=== PATIENT | male | born 1970 | race Two or more races ===

== ENCOUNTER 2025-04-23 04:24 | Inpatient (IN) | payer MEDICAID, OTHER ==
[~2025-04-23] VITALS: Ht 182.9 cm; Wt 96.9 kg
[2025-04-23] VITALS (19 sets, daily range): BP systolic 112–148; BP diastolic 74–96; PULSE 80–94; RESP 13–22; TEMP 97.8–98.2; O2SAT 0–98
--- NOTE | 2025-04-23 04:43 | ED.PDOC ---
HPI Comments HPI: 54 year old male presents to the ED with a chief complaint of chest pain onset yesterday around 16:00. Patient [place] when he began experiencing chest pain, was seen at [facility], was diagnosed with pericardial effusion, pulmonary hypertension, was discharged and advised to follow up with PCP, go to nearest ED if chest pain does not resolve. Patient states chest pain has not improved, describes pain as a pressure sensation. Denies shortness of breath, dizziness, headache, numbness/tingling, fever, chills, nausea, vomiting, diarrhea, abdominal pain, blurred vision. No other symptoms or modifying factors present at this time. Initial Vitals BP: 117/72 HR: 86 RR: 18 O2: 96% Temp: 97.6 F Past Medical History: Denies Past Surgical History: Denies Social History: Denies ETOH, smoking, and drug use. Medications: Denies Allergies: CHESTER FRAZIER/AMILCAR MOISE. HPI: Poor Historian. REVIEW OF SYSTEMS: CONSTITUTIONAL: Denies acute: fever, diaphoresis, chills, generalized weakness. HEAD: Denies acute: headache, photophobia Eyes: Denies acute: Double vision, vision loss, eye pain, eye discharge. EARS: Denies acute: tinnitus, hearing loss, ear discharge, ear pain, THROAT: Denies acute: sore throat, swelling, difficulty swallowing , pain with swallowing, change in voice. NECK: Denies acute: neck pain, neck swelling, stiff neck. HEART: Denies acute : palpitations, LUNGS: Denies acute: SOB, wheezing, cough, hemoptysis ABDOMEN: Denies acute: abdominal pain, Nausea, Vomiting, diarrhea, melena , hematemesis, hematochezia SKIN: Denies acute: rash, redness, lesions, itchiness. EXTREMITIES: Denies acute: calf pain, numbness, tingling, weakness, denies pain in extremity. Denies acute: Low back pain. Neuro: Denies acute: focal neurological deficit, motor or sensory focal neurological deficit, tremors, seizure like activity, confusion, dizziness, change in mental status, loss of bowel or bladder function, cauda equina like symptoms. : Denies acute: dysuria, hematuria, flank pain, increase in urinary frequency. PSYCH: Denies acute: hallucination, suicidal ideation, homicidal ideation. PHYSICAL EXAM: General: -----moderate---acute distress, awake and alert. Head: normocephalic, atraumatic. Neck: supple, trachea is midline, no swelling. Throat: Normal phonation. Eyes:, no erythema, no purulent discharge, no proptosis, no icterus. Heart: regular rate, regular rhythm, no significant murmur appreciated. Lungs: no apparent respiratory distress, Able to speak in full sentences. No wheezing, no rhonchi, no crackles. No stridors Clear to auscultation bilaterally. Abdomen: non tender to palpation, non distended, soft, no guarding, no rebound, + bowel sounds. Neuro: Awake, Alert, oriented to name, self, situation, follows commands GCS=15. Speech is normal. Skin: no petechia, no purpura, no cyanosis, non-pale, not jaundice. Lower extremities: --no - Pitting edema no deformity, no focal swelling, no calf TTP. Makes eye contact. moves all four extremities. Face: no apparent facial droop. Ambulating in the ED independently. ED COURSE: DISCLAIMER: This medical document was created using an electronic medical record system with voice recognition software and computerized dictation system. Although this document has been carefully reviewed, there might still be some phonetic and typographical errors. Occasional wrong-word or "sound-alike" substitutions may have occurred due to the inherent limitations of voice recognition software. These areas are purely typographical due to imperfections of the software programs and do not reflect any compromise in the patient's medical care. Please read the chart carefully and recognize, using context, where these substitutions have occurred. Chief Complaint: Chest Pain Time Seen by MD: 04:35 Reviewed Notes: Medications, Allergies Allergies: Coded Allergies: NO KNOWN ALLERGIES (Unverified , 04/23/25) Information Source: Patient Mode of Arrival: Ambulatory Severity: Moderate Timing: Days Duration: Since onset Prehospital treatment: None Past Medical History PAST MEDICAL HISTORY: Denies Surgical History: Denies all surgeries Family History Family History: Reviewed,noncontributory to illness, No family hx of Cancer, No family hx of DM, No family hx of Heart reza, No family hx of HTN, No family hx ofKidney reza, No family hx of Liver reza, No family hx of Lung reza, No family hx of Stroke Social History Smoker: Non-Smoker Alcohol: Denies ETOH Use Drugs: Denies Drug Use Lives In: Home Was a procedure done? Was a procedure done?: No X-Ray, Labs, Meds, VS Vital Signs Date Time Temp Pulse Resp B/P (MAP) Pulse Ox O2 Delivery O2 Flow Rate FiO2 04/23/25 04:58 102 04/23/25 04:45 98.7 94 15 136/85 (102) 96 98.7 04/23/25 04:33 97.6 86 18 117/72 96 97.6 04/23/25 04:30 81 Lab Test 04/23/25 04:50 Range/Units White Blood Count Pending Red Blood Count Pending Hemoglobin Pending Hematocrit Pending Mean Corpuscular Volume Pending Mean Corpuscular Hemoglobin Pending Mean Corpuscular Hemoglobin Concent Pending Red Cell Distribution Width Pending Platelet Count Pending Mean Platelet Volume Pending Neutrophils (%) (Auto) Pending Lymphocytes (%) (Auto) Pending Monocytes (%) (Auto) Pending Basophils (%) (Auto) Pending Neutrophils # (Auto) Pending Lymphocytes # (Auto) Pending Monocytes # (Auto) Pending Prothrombin Time Pending Prothrombin Time INR Pending Activated Partial Thromboplast Time Pending Sodium Level Pending Potassium Level Pending Chloride Level Pending Carbon Dioxide Level Pending Anion Gap Pending Blood Urea Nitrogen Pending Creatinine Pending Glomerular Filtration Rate Calc Pending BUN/Creatinine Ratio Pending Serum Glucose Pending Lactic Acid Level Pending Calcium Level Pending Magnesium Level Pending Total Bilirubin Pending Aspartate Amino Transferase (AST) Pending Alanine Aminotransferase (ALT) Pending Alkaline Phosphatase Pending Troponin I High Sensitivity Pending Total Protein Pending Albumin Pending Triglycerides Level Pending Cholesterol Level Pending LDL Cholesterol Pending HDL Cholesterol Pending Current Medications Medications (Trade) Dose Ordered Sig/Jam Route Start Time Stop Time Status Last Admin Heparin Sodium (Porcine) 5,000 units ONCE ONCE IV 04/23/25 04:45 04/23/25 04:46 DC 04/23/25 04:[address] [address] Ph: [phone] DIAGNOSTIC IMAGING Diagnostic Imaging Report : [id number] Signed PATIENT: AMILCAR FRAZIER ACCT: [id number] UNIT: [id number] : 1970 LOC: OVERFLOW ROOM / BED: [address] [place] [address] / A AGE / SEX: 54 / M ADM STATUS: ADM IN SERVICE 0438 ORDERING PHYSICIAN: MEL LICONA DO PROCEDURE(s): CXRP - CHEST PORTABLE REASON: cp ORDER NUMBER(s): [id number], ACCESSION NUMBER(s): [id number] CHEST RADIOGRAPH Indication: cp Technique: 1 view Comparison: None FINDINGS: Lines and Tubes: External leads and overlying defibrillator pad. Lungs/Pleura: Diffuse increased interstitial markings. No focal consolidation or evident pleural abnormality. Cardiomediastinum: Heart size appears mildly enlarged for technique. Other: No acute osseous abnormality. IMPRESSION: 1. Heart failure pattern with bilateral interstitial opacities. No focal consolidation or evident pleural abnormality. ATED BY: LEEANNA CRAMER MD DICTATED DATE/TIME: 04/23/25515 SIGNED BY: LEEANNA CRAMER MD SIGNED DATE/TIME: 04/23/25515 CC: Time of 1ST Reevaluation: 05:05 Reevaluation 1ST: Unchanged Time of 2ND Reevaluation: 04:40 (spoke with cardiolgy Dr. Ordoñez, recommends code STEMI, heprin bolus only ) Patient Education/Counseling: Diagnosis, Treatment Family Education/Counseling: No Family Present Departure 1 Departure Impression: Primary Impression: STEMI (ST elevation myocardial infarction) Critical Care Note Critical Care Time?: Yes (35 min-critical care time only) I personally scribed for MEL LICONA DO ([email or web address]) on 04/23/25 at 04:43. Electronically submitted by Kaylee Singh ([email or web address]). I personally scribed for MEL LICONA DO ([email or web address]) on 04/23/25 at 04:44. Electronically submitted by Kaylee Singh ([email or web address]). I personally scribed for MEL LICONA DO ([email or web address]) on 04/23/25 at 04:57. Electronically submitted by Kaylee Singh ([email or web address]). I personally scribed for [facility]EL [facility]ONA DO ([facility] on 04/23/25 at 04:58. Electronically submitted by Kaylee Singh ([email or web address]). I personally scribed for MEL LICONA DO ([facility]) on 04/23/25 at 05:07. Electronically submitted by Kaylee Singh ([email or web address]). I personally scribed for MEL LICONA DO ([facility]) on 04/23/25 at 05:29. Electronically submitted by Kaylee Singh ([email or web address]). MEL LICONA DO Apr 23, 2025 04:43
[2025-04-23] MEDS: HEPARIN SODIUM (PORCINE) 5000 UNITS/ML 1ML VIAL IV ONE (04:45)
[2025-04-23] MEDS ORDERED: NITROGLYCERIN 0.4 MG SL TAB SL PRN (05:00)
[2025-04-23] MEDS: ATORVASTATIN 20 MG TAB PO ONE (05:00)
[2025-04-23] MEDS ORDERED: ONDANSETRON HCL 4 MG/2 ML VIAL IV PRN (05:00)
[2025-04-23] MEDS ORDERED: MORPHINE SULFATE INJ 2 MG/ml SYRG IV PRN ×2 (05:00)
[2025-04-23] MEDS ORDERED: ACETAMINOPHEN 325 MG TAB PO PRN (05:00)
[2025-04-23] MEDS: SODIUM CHLOR 0.9% PF (SALINE LOCK) 10ML VIAL/SYR IV SCH (05:03)
--- NOTE | 2025-04-23 05:15 | DVHHPRES ---
History of Present Illness Resident Creating Document: MADINA GRANT History of Present Illness Gibson Juarez is a 54-year-old male patient who presents to ED with chief complaint of retrosternal, nonradiating, oppressive chest pain which started on 04/22/2025 at 4:00 p.m. in Functional Class III (while eating) and continued for the rest of the day, initially was intensity 10/10. Patient went to other center ([facility]) where he was diagnosed with [id number] pericardial effusion in [place] [facility] (ruled out pulmonary embolism), and was discharged home recommended to revisit emergency department if pain persisted. Since pain persisted until 4:20 a.m., he decided to visit the ED once again via EMS were and EKG was completed and showed inferolateral STEMI, indicating load of aspirin and activating code STEMI. Past medical history: Denies Surgical history: Denies Family history: Father has history of heart disease (pacemaker placement) Social history: Lives in [place] with family ( is next of kin). Denies current tobacco, alcohol and other drug abuse Allergies: Denies Home medication: Denies Patient seen and examined at bedside. Currently pain is 5/10. Indicated IV bolus of heparin, prepared the patient for lab support service tech. Patient will be admitted to ICU for further management. Past Medical History Per HPI Past Surgical History Per HPI Family History Per HPI Past Social History Per HPI Review of Systems Review of Systems Per HPI Allergies: Coded Allergies: NO KNOWN ALLERGIES (Unverified , 04/23/25) Medications Current Medications Medications Dose Ordered Sig/Jam Route Start Time Stop Time Status Last Admin Dose Admin Sodium Chloride 10 ml Q8HR IV 04/23/25 06:00 04/23/25 05:03 10 ML Aspirin 81 mg DAILY PO 04/24/25 10:00 Exam Vital Signs Vital Signs Date Time Temp Pulse Resp B/P (MAP) Pulse Ox O2 Delivery O2 Flow Rate FiO2 04/23/25 04:58 102 04/23/25 04:33 97.6 18 117/72 96 97.6 Exam Patient lying in bed, in no acute distress General: Lucid, afebrile, mucosae are moist Cardiovascular: Normal S1 and S2. No murmurs, gallops or rubs Respiratory: Normal ventilation mechanics. Clear lung sounds on auscultation Abdomen: Soft, nontender, no organomegaly, normal bowel sounds MSK/skin: Mobilizes 4 limbs. Skin is dry and warm Neurological: Oriented in 3 spheres. No motor no sensitive deficits. Pupils are isocoric and reactive SEPSIS Sepsis Screen Date sepsis recognized/suspect: Apr 23, 2025 Time Sepsis recognized/suspect: 435 Recent Procedure: No On Antibiotic Therapy: No Respiratory Rate >20: No Heart Rate >90: No Temp<36 C (96.8 F) or >38.3 C: No SBP <90 or MAP <65 mmHG: No New Acute Mental Status Change: No Is the patient on CPAP, BIPAP,: No Physician Orders Getter Filler (04/23/25 ) Lactic Acid W/ Reflex Order (04/23/25 04:38) Chest Portable (04/23/25 04:38) Electrocardigram (04/23/25 04:38) Electrocardigram (04/23/25 05:38) Electrocardigram (04/23/25 07:38) Complete Blood Count (04/23/25 04:49) Comprehensive Metabolic Panel (04/23/25 04:49) PTPTT (04/23/25 04:49) Magnesium (04/23/25 04:49) Chest Portable (04/23/25 04:49) Getter Filler (04/23/25 04:49) Blood Pressure (04/23/25 04:49) Pulse Oximetry (04/23/25 04:49) Sodium Chloride Lock (Saline Lock Ns) (04/23/25 06:00) Aspirin Tablet (04/24/25 10:00) Oxygen Per Hour (04/23/25 04:49) Lipid Panel (04/23/25 04:49) Troponin-I Hs (04/23/25 04:49) Cardiac Rehabilitation - Outpa (04/23/25 04:49) Comprehensive Metabolic Panel (04/25/25 04:00) Troponin-I Hs (04/23/25 05:49) Troponin-I Hs (04/23/25 07:49) * Cardiology Consult (04/23/25 04:56) Admit (04/23/25 04:59) Code Status (04/23/25 04:59) Acetaminophen Tablet (Tylenol Tablet) (04/23/25 05:00) Ondansetron Hcl (Zofran) (04/23/25 05:00) Npo (Nothing By Mouth) Diet (04/23/25 Breakfast) Echo 2d Mode Cardiac Dop (04/23/25 04:59) Morphine Sulfate Injection (04/23/25 05:00) Nitroglycerin Sublingual (Ntrostat Subli (04/23/25 05:00) Morphine Sulfate Injection (04/23/25 05:00) Oxygen By Nasal Cannula (04/23/25 04:59) Stat Ekg For Chest Pain (04/23/25 04:59) Notify Md Of Changes From Base (04/23/25 04:59) Paving Rammer For 24 Hours (04/23/25 04:59) Emergency Dysrhythmia Protocol (04/23/25 04:59) Rhythm Strips Once Every Shift (04/23/25 04:59) Atorvastatin (Lipitor) (04/23/25 22:00) Atorvastatin (Lipitor) (04/23/25 05:00) Vital Signs Date Time Temp Pulse Resp B/P (MAP) Pulse Ox O2 Delivery O2 Flow Rate FiO2 04/23/25 04:58 102 04/23/25 04:33 97.6 86 18 117/72 96 97.6 04/23/25 04:30 81 Medications Medications Dose Ordered Sig/Jam Route Start Time Stop Time Status Last Admin Dose Admin Heparin Sodium (Porcine) 5,000 units ONCE ONCE IV 04/23/25 04:45 04/23/25 04:46 DC 04/23/25 04:45 5,000 UNITS Sodium Chloride 10 ml Q8HR IV 04/23/25 06:00 04/23/25 05:03 10 ML Assessment/Plan Assessment/Plan Inferolateral STEMI (Killip and Starr A, patient delay 12 hours, door to balloon time and total ischemia time pending) [id number] pericardial effusion Ruled out pulmonary embolism Completed EKG which showed inferolateral STEMI. Ordered laboratory and troponins. Code STEMI activated, patient is going to lab support service tech. Have discussed risks and benefits of procedure, including risk of ending up with hemodialysis (patient did receive iodine this evening), bleeding, infection and even . Patient consents to procedure Ordered echocardiogram Patient admitted to ICU Patient received bolus of heparin (4000 units) and load of aspirin (325 mg) Goals of care discussed with patient for over18 minutes: Full code status Discussed plan with Dr. Daniels, patient, family and nurses: Patient admitted to hospital in ICU status, code STEMI activated, transporting patient to lab support service tech to complete primary percutaneous coronary intervention. Patient has prolonged times, has high-risk of presenting mechanical complications. Patient has poor prognosis. Plan discussed with: Patient, Spouse, Son, Other (Nurses) My Orders Orders - MADINA GRANT Procedure Category Date Status Time Admit ADMIT 04/23/25 Verified 04:59 Code Status CODE 04/23/25 Verified 04:59 Acetaminophen Tablet [facility] 04/23/25 Verified (Tylenol Tablet) 05:00 Ondansetron Hcl [facility] 04/23/25 Verified (Zofran) 05:00 Npo (Nothing By DIET 04/23/25 Verified Mouth) Diet Breakfast Echo 2d Mode Cardiac US 04/23/25 Verified DOP 04:59 Morphine Sulfate [facility] 04/23/25 Verified Injection 05:00 Nitroglycerin [facility] 04/23/25 Verified Sublingual (Ntrostat 05:00 Morphine Sulfate [facility] 04/23/25 Verified Injection 05:00 Oxygen By Nasal RT 04/23/25 Verified Cannula 04:59 Stat Ekg For Chest [facility] 04/23/25 Verified Pain 04:59 Notify Md Of Changes [facility] 04/23/25 Verified From Base 04:59 Paving Rammer For [facility] 04/23/25 Verified 24 Hours 04:59 Emergency Dysrhythmia [facility] 04/23/25 Verified Protocol 04:59 Rhythm Strips Once [facility] 04/23/25 Verified Every Shift 04:59 Atorvastatin (Lipitor) [facility] 04/23/25 Verified 22:00 Atorvastatin (Lipitor) [facility] 04/23/25 Verified 05:00 Date of Service: Apr 23, 2025 Billing Provider: GRISELDA DANIELS MD Common Visit Codes: [id number] INP/OBS CARE (HIGH) Secondary Visit Codes: [id number] CARE PLAN 30 MINUTES MADINA GRANT Apr 23, 2025 05:15
--- NOTE | 2025-04-23 05:18 | DVH ---
CHEST RADIOGRAPH Indication: cp Technique: 1 view Comparison: None FINDINGS: Lines and Tubes: External leads and overlying defibrillator pad. Lungs/Pleura: Diffuse increased interstitial markings. No focal consolidation or evident pleural abn ormality. Cardiomediastinum: Heart size appears mildly enlarged for technique. Other: No acute osseous abnormality. IMPRESSION: 1. Heart failure pattern with bilateral interstitial opacities. No focal consolidation or evident ple ural abnormality.
[2025-04-23] MEDS: ANGIOMAX 250 MG VIAL IV ONE (05:21)
[2025-04-23] MEDS: MIDAZOLAM HCL 2MG/2ML 2ml VIAL (1mg/ml) ONE (05:21)
[2025-04-23] MEDS: fentaNYL CITRATE 100 MCG/2 ML VL ONE (05:21)
[2025-04-23] MEDS: VERAPAMIL 2.5MG/ML INJ 2ML VIAL IV ONE (05:21)
[2025-04-23] MEDS: SODIUM CHL 0.9% 50 ML ONE (05:21)
[2025-04-23] MEDS: IODIXANOL 320MG/ML 100ML BTL IV ONE (05:22)
[2025-04-23] MEDS: LIDOCAINE 2%HCL (LOCAL ANESTH.) INJ 20ML MDV ONE (05:22)
[2025-04-23 05:28] LABS: Hematocrit 47.1 % (41.0-53.0); Hemoglobin 15.7 g/dL (13.5-17.5); Mean Corpuscular Hemoglobin 31.9 pg (28.0-32.0); Mean Corpuscular Volume 95.9 fL (80.0-100.0); Nucleated Red Blood Cells % 0.0 %
--- NOTE | 2025-04-23 05:33 | DVHINCON2 ---
Date Seen: Apr 23, 2025 Referring Physician Emergency room Reason for Consultation Chest pain History of Present Illness 54-year-old gentleman developed chest pain about 4:00 a.m. yesterday afternoon and went to [facility] in [place]. He was told he had a pericardial effusion and possibly pericarditis. He was sent home. He had recurrent symptoms of chest pain and shortness of breath. He came to [facility] and was found to have significant ST segment elevations in the inferior lateral leads suggesting ST-elevation myocardial infarction. [place] [address]. A code STEMI was called. Patient was brought to the cardiac catheterization laboratory. He has no significant past medical history. He had one episode of chest pain about six months ago but it resolved promptly. Past Medical History There was no history of diabetes and hypertension. Issue underlying coronary artery disease thyroid disorders bleeding disorders or endocrinopathies. Past Surgical History No past surgical history. Family History He has father had heart disease. His mother of diabetes mellitus. Siblings have been LD. He is and has children. Social History He is a nondrinker nonsmoker. 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 Current Medications Current Medications Medications (Trade) Dose Ordered Sig/Jam Route PRN Reason Start Time Stop Time Status Last Admin Sodium Chloride (Saline Lock Ns) 10 ml Q8HR IV 04/23/25 06:00 04/23/25 05:03 Aspirin 81 mg DAILY PO 04/24/25 10:00 Acetaminophen (Tylenol Tablet) 325 mg Q4HP PRN PO MILD PAIN (1-3 PAIN SCALE) 04/23/25 05:00 Ondansetron HCl (Zofran) 4 mg Q4HP PRN IV NAUSEA / VOMITING 04/23/25 05:00 Morphine Sulfate 2 mg Q4HPRN PRN IV SEVERE PAIN (7-10 PAIN SCALE) 04/23/25 05:00 Nitroglycerin (Ntrostat Sublingual) 0.4 mg Q5MINP PRN SL FOR CHEST PAIN 04/23/25 05:00 Morphine Sulfate 2 mg Q30M PRN IV FOR CHEST PAIN 04/23/25 05:00 Atorvastatin Calcium (Lipitor) 80 mg HS PO 04/23/25 22:00 Review of Systems Review of systems from a constitutional standpoint negative for fevers chills or weight loss. ENT is otherwise negative with the exception of the occasional dizziness. Neurologically stable. Cardiac and respiratory as noted above with shortness of breath and chest pain. GI negative. Hematological and oncological negative. Neurologically and musculoskeletal endocrinology negative. No history of bleeding disorders. History of prostatic urogenital abnormalities. Vital Signs Vital Signs Date Time Temp Pulse Resp B/P (MAP) Pulse Ox O2 Delivery O2 Flow Rate FiO2 04/23/25 05:12 16 96 Room Air* 0 21 04/23/25 04:58 102 04/23/25 04:45 98.7 136/85 (102) 98.7 Physical Exam He is awake alert and oriented he is in no acute distress he is lying in bed. Complains of 8/10 chest pain. It radiates to its back and he is also complaining of a pleuritic component. He states that heard slowly takes a deep breath. HEENT examination is otherwise unremarkable. Lungs are clear. Heart exam is regular. Soft S4. No pericardial rub noted. The abdominal examination is unremarkable. Extremities reveal adequate perfusion. No clubbing or cyanosis no edema. Neurologically is intact without focal neurologic deficits. EKG noted. Labs/Diagnostic Data EKG is noted ST segment elevations in the inferior lateral leads. This could be consistent with an ST-elevation myocardial infarction angled diffuse pericarditis. Labs Test 04/23/25 04:50 Range/Units Assessment Possible ST segment elevation myocardial infarction. Rule out acute pericarditis. History of pericardial effusion by echocardiogram performed within the last 24 hours. Plan/Recommendation Patient will undergo urgent cardiac catheterization therapeutic intervention. Risks and benefits explained with the agrees. Plan discussed with: Patient, Spouse NYHA Physical activity limitations: Class3(Marked) ordinary Date of Service: Apr 23, 2025 Billing Provider: DIYA UNDERWOOD Sr., MD Cardiology Common Codes: [id number] INP/OBS CARE (High) DIYA UNDERWOOD Sr., MD Apr 23, 2025 05:33
--- NOTE | 2025-04-23 06:00 | DVHOP2 ---
Operative Report - 2 Report Details Date: 04/23/25 Preop Diagnosis: CAD Postop Diagnosis: Pericarditis Surgeon: Diya Ordoñez MD Anesthesiologist: Conscious sedation Anesthesia: Mac, Local Consent: The patient was informed of the risks and benefits of the procedure. These include but are not limited to complications of anesthesia, postoperative infection, incomplete relief of symptoms, recurrence of symptoms, damage to blood vessels, nerves and tendons, deep venous thrombosis, pulmonary embolism and possible need for repeat surgery in the future. Complications: No complications Findings: Normal coronaries Indications for Surgery: Significant ST segment elevation Name of Procedure Performed Left heart catheterization. Bilateral cine coronary angiography. Left ventriculography. Procedure Details Procedure Details: Prior local anesthesia with 2% lidocaine to the right wrist and full informed consent obtained patient was prepped and draped in usual fashion followed by placement of a six Arabic sheath into the radial artery through which a three five EBU guide was used to perform ventriculography and cannulation of both right and left coronary ostia without complications. Hemodynamics: Aortic blood pressure was 110/70. End-diastolic pressure was 10. There was no gradient across the aortic valve on pullback. Coronary anatomy: The RCA is a large vessel it is normal in its proximal mid and distal segments. The PDA and posterolateral branches are normal. Left main is large and normal. Left anterior descending is a large vessel it is normal in its proximal mid and distal segments. The septals and diagonals are normal. The circumflex is large with two marginals free of significant disease. A daycare a thank you Ventriculography in the OLIVER projection shows an EF of 60%. No wall motion abnormalities are noted. Impression: Normal left ventricular end-diastolic pressure at rest with normal ejection fraction. No coronary artery disease present. Recommendations: Medical therapy is warranted continue risk factor modification. Nonsteroidals and colchicine will be instituted. Condition Good Disposition Still a Patient Date of Service: Apr 23, 2025 Billing Provider: DIYA ORDOÑEZ Sr., MD Cardiology Common Codes: [id number] INP/OBS CARE (High) Cardiology Procedure Codes: 23603-ETFA HEART CATH W/INTRA INJ DIYA ORDOÑEZ Sr., MD Apr 23, 2025 06:00
[2025-04-23 06:03] LABS: Alanine Aminotransferase 14 U/L (7-40); Albumin 4.7 g/dL (3.2-4.8); Alkaline Phosphatase 63 U/L (46-116); Anion Gap 12 (5-15); BUN/Creatinine Ratio 16.1 (10.0-20.0); Blood Urea Nitrogen 15 mg/dL (9-23); Calcium 9.0 mg/dL (8.7-10.4); Carbon Dioxide 23 mmol/L (20-31); Chloride 103 mmol/L (98-107); Magnesium 2.4 mg/dL (1.6-2.6); Potassium 4.2 mmol/L (3.5-5.1); Sodium 138 mmol/L (136-145); Total Protein 7.8 g/dL (5.7-8.2); Triglycerides 54 mg/dL (< 150)
[2025-04-23 06:04] LABS: Bilirubin, Total 1.2 mg/dL (0.2-1.0); Cholesterol 159 mg/dL (< 200); HDL Cholesterol 57 mg/dL (40-59)
[2025-04-23 06:15] LABS: Lactic Acid w/Reflex 2.4 mmol/L (0.4-2.0)
[2025-04-23 06:16] LABS: INR 1.08 (0.9-1.15); Prothrombin Time 11.4 sec (9.3-11.8)
[2025-04-23 06:20] LABS: Partial Thromboplastin Time 99.8 SEC (24.5-34.5)
[2025-04-23 06:21] LABS: Glucose 189 mg/dL (74-106)
--- NOTE | 2025-04-23 06:54 | ECG ---
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
[2025-04-23 08:02] LABS: Alanine Aminotransferase 16 U/L (7-40); Albumin 4.7 g/dL (3.2-4.8); Alkaline Phosphatase 63 U/L (46-116); Anion Gap 16 (5-15); BUN/Creatinine Ratio 21.5 (10.0-20.0); Bilirubin, Total 1.1 mg/dL (0.2-1.0); Blood Urea Nitrogen 20 mg/dL (9-23); Calcium 9.2 mg/dL (8.7-10.4); Chloride 103 mmol/L (98-107); Cholesterol 163 mg/dL (< 200); HDL Cholesterol 58 mg/dL (40-59); Potassium 4.2 mmol/L (3.5-5.1); Sodium 138 mmol/L (136-145); Total Protein 7.6 g/dL (5.7-8.2); Triglycerides 56 mg/dL (< 150)
[2025-04-23 08:09] LABS: Carbon Dioxide 19 mmol/L (20-31); Glucose 189 mg/dL (74-106)
[2025-04-23] MEDS: COLCHICINE 0.6 MG CAP PO SCH (10:00)
[2025-04-23] MEDS: NAPROXEN 500 MG TAB PO SCH (14:17)
[2025-04-23] MEDS: PANTOPRAZOLE 40 MG TAB PO SCH (17:22)
[2025-04-23] MEDS: SODIUM CHLORIDE 0.9% 1,000 ML IV SCH (17:23)
[2025-04-23] MEDS: ATORVASTATIN 20 MG TAB PO SCH (21:27)
[2025-04-24 01:00] VITALS: BP 117/79; PULSE 83; RESP 18; TEMP 97.5; O2SAT 96
[2025-04-24 05:00] VITALS: BP 129/85; PULSE 80; RESP 17; TEMP 98; O2SAT 96
[2025-04-24 06:44] LABS: Hematocrit 43.2 % (41.0-53.0); Hemoglobin 14.8 g/dL (13.5-17.5); Mean Corpuscular Hemoglobin 32.5 pg (28.0-32.0); Mean Corpuscular Volume 94.6 fL (80.0-100.0); Nucleated Red Blood Cells % 0.0 %
[2025-04-24 07:17] LABS: Chloride 107 mmol/L (98-107); Potassium 3.9 mmol/L (3.5-5.1); Sodium 140 mmol/L (136-145)
[2025-04-24 07:18] LABS: Anion Gap 9 (5-15); Calcium 9.0 mg/dL (8.7-10.4); Carbon Dioxide 24 mmol/L (20-31)
[2025-04-24 07:23] LABS: BUN/Creatinine Ratio 16.2 (10.0-20.0); Blood Urea Nitrogen 12 mg/dL (9-23)
[2025-04-24 07:24] LABS: Glucose 112 mg/dL (74-106)
[2025-04-24 08:00] VITALS: PULSE 78; O2SAT 0
[2025-04-24 09:00] VITALS: BP 122/78; PULSE 84; RESP 20; TEMP 98.4; O2SAT 95
[2025-04-24 13:00] VITALS: BP 127/70; PULSE 84; RESP 20; TEMP 98; O2SAT 95
[2025-04-24] MEDS ORDERED: NAP500T PO (16:04)
[2025-04-24] MEDS ORDERED: COLC1CAP PO (16:05)
--- NOTE | 2025-04-24 16:12 | DVHDS2 ---
Discharge Summary Date of Admission Apr 23, 2025 at 04:59 Date of Discharge: Apr 24, 2025 Labs/Diagnostic Data: Laboratory Results Test 04/24/25 06:08 04/23/25 04:50 White Blood Count 9.8 10^3/uL (4.4-10.8) Red Blood Count 4.56 10^6/uL (4.5-5.90) Hemoglobin 14.8 g/dL (13.5-17.5) Hematocrit 43.2 % (41.0-53.0) Mean Corpuscular Volume 94.6 fL (80.0-100.0) Mean Corpuscular Hemoglobin 32.5 pg (28.0-32.0) Mean Corpuscular Hemoglobin Concent 34.3 g/dL (32.0-36.0) Red Cell Distribution Width 13.3 % (11.8-14.3) Platelet Count 208 10^3/uL (140-450) Mean Platelet Volume 9.0 fL (6.9-10.8) Neutrophils (%) (Auto) 68.7 % (37.0-80.0) Lymphocytes (%) (Auto) 16.2 % (10.0-50.0) Monocytes (%) (Auto) 13.7 % (0.0-12.0) Eosinophils (%) (Auto) 1.2 % (0.0-7.0) Basophils (%) (Auto) 0.2 % (0.0-2.0) Neutrophils # (Auto) 6.8 10 ^3/uL (1.6-8.6) Lymphocytes # (Auto) 1.6 10 ^3/uL (0.4-5.4) Monocytes # (Auto) 1.3 10 ^3/uL (0-1.3) Eosinophils # (Auto) 0.1 10 ^3/uL (0-0.8) Basophils # (Auto) 0 10 ^3/uL (0-0.2) Nucleated Red Blood Cells 0.0 % Sodium Level 140 mmol/L (136-145) Potassium Level 3.9 mmol/L (3.5-5.1) Chloride Level 107 mmol/L (98-107) Carbon Dioxide Level 24 mmol/L (20-31) Anion Gap 9 (5-15) Blood Urea Nitrogen 12 mg/dL (9-23) Creatinine 0.74 mg/dL (0.700-1.30) Glomerular Filtration Rate Calc 107 mL/min (>90) BUN/Creatinine Ratio 16.2 (10.0-20.0) Serum Glucose 112 mg/dL (74-106) Lactic Acid Level 1.0 mmol/L (0.4-2.0) Calcium Level 9.0 mg/dL (8.7-10.4) Erythrocyte Sedimentation Rate 5 mm/hr (0-20) Prothrombin Time 11.4 sec (9.3-11.8) Prothrombin Time INR 1.08 (0.9-1.15) Activated Partial Thromboplast Time 99.8 SEC (24.5-34.5) Magnesium Level 2.4 mg/dL (1.6-2.6) Total Bilirubin 1.1 mg/dL (0.2-1.0) Aspartate Amino Transferase (AST) 28 U/L (13-40) Alanine Aminotransferase (ALT) 16 U/L (7-40) Alkaline Phosphatase 63 U/L (46-116) Troponin I High Sensitivity 3 ng/L (</=54) C-Reactive Protein High Sensitivity 6.94 mg/dL (<1.0) Total Protein 7.6 g/dL (5.7-8.2) Albumin 4.7 g/dL (3.2-4.8) Triglycerides Level 56 mg/dL (< 150) Cholesterol Level 163 mg/dL (< 200) LDL Cholesterol 102 mg/dL (< 100) HDL Cholesterol 58 mg/dL (40-59) Thyroid Stimulating Hormone (TSH) 0.93 uIU/mL (0.55-4.78) Other Laboratory Tests 04/24/25 06:08 Brief Hx & Hospital Course: 54-year-old male with no significant past medical history who was playing in a casino started having substernal chest pain was seen at different hospital CT angio was done which shows no evidence of PE. Patient was found to have moderate pericardial effusion was sent home. Patient's came back to ER as pain was not resolved eventually patient was found to have inferior L STEMI. Patient underwent left heart catheterization which shows evidence of pericarditis no coronary artery disease. 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 Please return to ER if there is any recurrent chest pain or any concern. Condition at Discharge: Stable Final Diagnosis/Problems List 1. Pericarditis 2. Inferior L STEMI secondary to pericarditis Discharge Disposition: Home SNF Discharge Will this Physician continue t: No Discharge Instruct/Medications Diet: Cardiac 2g Na,low cholest Activity: No Restrictions, As Tolerated Follow Up/Referral: Follow up with the PCP in one week Follow up with Dr. Ordoñez in one week Medications: Naprosyn for one week, colchicine for a month, in the meantime follow up with Dr. Ordoñez in one week New Medications: Colchicine (Colchicine) 0.6 Mg Cap 0.6 MG PO DAILY, #30 CAP Naproxen (Naprosyn Tablet) 500 Mg Tb 500 MG PO BIDPC for 7 Days, #14 TAB Scheduled Colchicine (Colchicine), 0.6 MG PO DAILY Naproxen (Naprosyn Tablet), 500 MG PO BIDPC Discharge Statement: "Patient was advised to return to the ER or call 911 if any headaches, dizziness, shortness of breath, chest pain, abdominal pain, bleeding, fevers, or worsening of medical condition. Patient was counseled about treatment plan, medications, possible side effects, patientverbalized understanding. All questions were answered to the best of my ability. This discharge took greater then 30 minutes in planning, reviewing documentation, counseling the patient, and discussing with other team members." ASSESSMENT ASSESSMENT Assessment 1. Pericarditis 2. Inferior L STEMI secondary to pericarditis Date of Service: Apr 24, 2025 Billing Provider: RADHA BURGOS MD Common Visit Codes: 19328-VBS/OBS DISCH DAY >30min RADHA BURGOS MD Apr 24, 2025 16:12
[2025-04-24 17:00] VITALS: BP 130/56; PULSE 85; RESP 20; TEMP 98.4; O2SAT 96
--- NOTE | 2025-04-25 17:49 | DVHSR ---
APPROVED REPORT EXAM: Two-dimensional and M-mode echocardiogram with Doppler and color Doppler. Blood Pressure: 115/86 mmHg INDICATION Inferolateral STEMI RISK FACTORS Height: 6'0, Weight: 208 DIMENSIONS LVDd4.4 (3.8-5.7cm)LA (2D)4.7 (1.9-4.0cm)Aortic Root3.7 (2.0-3.7cm) LVDs2.9 (2.5-4.0cm)LA (MM) (1.9-4.0cm)Aortic Cusp Exc1.8 (1.5-2.0cm) EF (%) 60.0 (55-70%)Rt. Atrium2.7 (1.9-4.0cm)Asc. Aorta cm IVSd1.1 (0.7-1.1cm)RV (D)4.2 (1.8-2.4cm) PWd1.0 (0.7-1.1cm) Mitral Valve MitralMitral Stenosis E wave0.99m/sMV Mean GR.2mmHg A wave0.63m/sMV Peak GR.3mmHg E/A ratio1.62D MVAcm2 DECEL [id number] 1/2 Timems Aortic Valve Aortic ValveAortic Stenosis V11.39m/Guille Mean GR.4mmHg V21.36m/Guille Peak GR.7mmHg LVOT Diameter2.1 (1.8-2.4cm)Doppler AVA3.54cm2 Pulmonic Valve V20.98m/s Tricuspid Valve TR Velocity2.61m/s [id number] Conclusion LV EF IS 65% AND IS NORMAL MODERATELY DILATED RV AND LA MILD MVP NORMAL TV,PV AND AORTIC VALVE NO EFFUSION BORDERLINE ELEVATION OF RVSP AND IS 34 MM OF HG NORMAL RV FUNCTION
--- NOTE | 2025-04-29 14:06 | ECG ---
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
== END 2025-04-24 19:20 | disposition home or self-care (01) | DRG 190 ==
LOC: ER 04:24 → OVERFLOW 04:59 → TELE-WESTW 16:10
PROVIDERS: ADMIT Internal Medicine; ATTEND Internal Medicine
PROC: 4A023N7 Measurement of Cardiac Sampling and Pressure, Left Heart, Percutaneous Approach (ICD-10-PCS; principal; 2025-04-23)
PROC: B211YZZ Fluoroscopy of Multiple Coronary Arteries using Other Contrast (ICD-10-PCS; 2025-04-23)
PROC: B215YZZ Fluoroscopy of Left Heart using Other Contrast (ICD-10-PCS; 2025-04-23)
DX: I21.19 ST elevation (STEMI) myocardial infarction involving other coronary artery of inferior wall (principal); I30.9 Acute pericarditis, unspecified; I25.10 Atherosclerotic heart disease of native coronary artery without angina pectoris; Z82.49 Family history of ischemic heart disease and other diseases of the circulatory system; Z83.3 Family history of diabetes mellitus; Z63.4 Disappearance and death of family member
CPT/HCPCS: 36415; 71045; 80048; 80053; 80061; 83605; 83735; 84443; 84484; 85025; 85610; 85652; 85730; 86141; 93005; 93306; 93458; 99152; 99291; C1887; G0378; J2250; Q9967